=== PATIENT | female | born 1945 | race Caucasian/White ===

== ENCOUNTER 2020-12-28 15:37 | Inpatient (IN) | payer MEDICARE, OTHER ==
[2020-12-28] MEDS ORDERED: SODIUM CHLORIDE 0.9% 1,000 ML IV STA (16:08)
[2020-12-28] MEDS ORDERED: fentaNYL (PF) 50 MCG/ML 2 ML AMP IVP STA (16:09)
[2020-12-28 16:39] LABS: Anisocytosis Slight; Basophils # (A) 0.1 k/uL (0-0.2); Basophils % (A) 1 %; Eosinophils # (A) 0.1 k/uL (0-0.7); Eosinophils % (A) 1 %; HCT 48.4 % (34.0-46.0); HGB 16.1 gm/dL (11.4-16.0); Lymphocytes # (A) 1.4 k/uL (1.0-4.8); Lymphocytes % (A) 17 %; MCH 30.1 pg (25.0-35.0); MCHC 33.3 g/dL (31.0-37.0); MCV 90.3 fL (80.0-100.0); Mean Platelet Volume 10.2; Monocytes # (A) 0.4 k/uL (0-1.0); Monocytes % (A) 5 %; Neutrophils # (A) 6.1 k/uL (1.3-7.7); Neutrophils % (A) 74 %; Platelet Count 339 k/uL (150-450); RBC 5.36 m/uL (3.80-5.40); RDW 16.2 % (11.5-15.5); WBC 8.2 k/uL (3.8-10.6)
--- NOTE | 2020-12-28 16:42 | ED ---
General Adult HPI - General Chief complaint: Recheck/Abnormal Lab/Rx Stated complaint: Jaundice Time Seen by Provider: 12/28/20 15:47 Source: patient, family, RN notes reviewed, Caregiver Limitations: no limitations - History of Present Illness Initial comments: 75-year-old white female patient brought in by her caregiver states she has not seen patient in the past 2 weeks. Patient is alert and oriented 2 initially stating the year was 2000, severely jaundiced and weak but able to get on to cart with minimal assistance. Patient complaining of generalized weakness and pain. Patient unaware that she is jaundiced states the urine has been dark in color but cannot say how long its been happening. Son at bedside states he has not seen his mother in 1 month. States she was at [facility] in 2019 and diagnosed with gallstones but they did not remove her gallbladder at that time. Patient has history of CVA, denies drug or alcohol use. States he has a history of hepatitis but is unsure what she had passed. Patient complains of diffuse pain in abdomen and chest with palpation. Denies fever, shortness of breath, cough, nausea vomiting or diarrhea. Initial vital signs show a temperature of 96.9 heart rate of 95 blood pressure 93/70 with an oxygen saturation of 97% and a respiratory rate of 18. Due to the jaundice and the blood pressure, patient will be evaluated for sepsis, and biliary obstruction. - Related Data Allergies Allergy/AdvReac Type Severity Reaction Status Date / Time codeine Allergy Unknown Verified 12/28/20 15:47 Review of Systems ROS Statement: Those systems with pertinent positive or pertinent negative responses have been documented in the HPI. ROS Other: All systems not noted in ROS Statement are negative. Past Medical History Past Medical History: Unable to Obtain History of Any Multi-Drug Resistant Organisms: None Reported Past Surgical History: Unable to Obtain Past Psychological History: No Psychological Hx Reported Smoking Status: Current every day smoker Past Alcohol Use History: None Reported Past Drug Use History: None Reported General Exam Limitations: no limitations, altered mental status (patient initially states year is 2000) General appearance: alert Head exam: Present: atraumatic Eye exam: Present: PERRL, EOMI, scleral icterus ENT exam: Present: normal exam, normal oropharynx, mucous membranes dry Neck exam: Present: normal inspection, full ROM Respiratory exam: Present: normal lung sounds bilaterally Cardiovascular Exam: Present: regular rate GI/Abdominal exam: Present: soft, tenderness, normal bowel sounds Neurological exam: Present: alert Psychiatric exam: Present: normal affect, normal mood Skin exam: Present: warm, dry, other (full body jaundice) Course Vital Signs 12/28/20 12/28/20 12/28/20 15:42 16:36 17:00 Temperature 96.9 F L Pulse Rate 95 79 76 Respiratory 16 18 18 Rate Blood Pressure 93/70 103/63 O2 Sat by Pulse 97 97 Oximetry 12/28/20 12/28/20 12/28/20 17:30 18:00 18:30 Temperature Pulse Rate 77 74 70 Respiratory 18 16 18 Rate Blood Pressure 121/74 118/73 108/70 O2 Sat by Pulse 97 99 96 Oximetry - Reevaluation(s) Reevaluation #1: 12/28/20 16:43 Patient reassessment, patient states pain only with palpation and is refusing fentanyl at this time. Patient denies nausea. Son at bedside states that eliza mcfarland had seen a GI doctor in 2019 for gallstones in the chose at that time not to remove her gallbladder. Son is also unaware that patient had hepatitis in the past. 6-year-old seen patient in 2019 and records requested from that facility. Time: 17:18 (Blood pressure 121/74 heart rate 77 oxygen level 97% on room air patient comfortable on cart awaiting CAT scan) Time: 17:24 (Urine shows WBC count of 86, will treat with Rocephin after blood cultures drawn) EKG Findings - EKG Comments: EKG Findings:: ekg reviewed by Dr. Whitley and myself at 1620 shows sinus rhythm with ventricular rate of 84 [place] interval of 0.158 QRS of 0.84 QTc of 472 ms Medical Decision Making - Medical Decision Making Evaluation of labs shows, White blood count 8.2 hemoglobin 16.1. Lactic acid 2.33 treated with 2 L of normal saline suspected to be from dehydration rather than sepsis, total bili 26.7, AST 471, LT 585, alk phos 1860, labs are consist ent with cholecystitis with biliary obstruction. KUB negative, however CT shows 5 x 4 cm mass at the pancreatic body, renal cyst up to 4.5 cm, and 4.1 aortic aneurysm which. Records obtained from [facility], patient has history of of multiple gallstones 6 cm, with multiple bilateral renal cysts up to 5 cm, E aortic aneurysm at 3.5 cm on 10/15/2019. Urinalysis shows a WBC count of 86 with large leukocyte esterase and trace blood, treated with Rocephin 2 g IV piggyback for UTI. Case discussed with Dr. Whitley with agreement to admit patient to Dr. Sanots, with consult to oncology and GI. - Lab Data Result diagrams: 12/28/20 16:14 12/28/20 16:14 Lab Results 12/28/20 12/28/20 12/28/20 Range/Units 16:14 16:14 16:14 WBC 8.2 (3.8-10.6) k/uL RBC 5.36 (3.80-5.40) m/uL Hgb 16.1 H (11.4-16.0) gm/dL Hct 48.4 H (34.0-46.0) % MCV 90.3 (80.0-100.0) fL MCH 30.1 (25.0-35.0) pg MCHC 33.3 (31.0-37.0) g/dL RDW 16.2 H (11.5-15.5) % Plt Count 339 (150-450) k/uL MPV 10.2 Neutrophils % 74 % Lymphocytes % 17 % Monocytes % 5 % Eosinophils % 1 % Basophils % 1 % Neutrophils # 6.1 (1.3-7.7) k/uL Lymphocytes # 1.4 (1.0-4.8) k/uL Monocytes # 0.4 (0-1.0) k/uL Eosinophils # 0.1 (0-0.7) k/uL Basophils # 0.1 (0-0.2) k/uL Anisocytosis Slight PT 13.5 H (9.0-12.0) sec INR 1.3 H (<1.2) APTT 25.9 (22.0-30.0) sec Sodium 137 (137-145) mmol/L Potassium 4.0 (3.5-5.1) mmol/L Chloride 102 (98-107) mmol/L Carbon Dioxide 15 L (22-30) mmol/L Anion Gap 20 mmol/L BUN 22 H (7-17) mg/dL Creatinine 0.86 (0.52-1.04) mg/dL Est GFR (CKD-EPI)AfAm 76 (>60 ml/min/1.73 sqM) Est GFR (CKD-EPI)NonAf 66 (>60 ml/min/1.73 sqM) Glucose 157 H (74-99) mg/dL Lactic Ac Sepsis Rflx Plasma Lactic Acid Wolfgang (0.7-2.0) mmol/L Calcium 10.3 H (8.4-10.2) mg/dL Total Bilirubin 26.7 H* (0.2-1.3) mg/dL AST 471 H (14-36) U/L ALT 585 H (4-34) U/L Alkaline Phosphatase 1860 H (38-126) U/L Ammonia (<30) umol/L Creatine Kinase 29 L (30-135) U/L Troponin I (0.000-0.034) ng/mL Total Protein 7.5 (6.3-8.2) g/dL Albumin 3.8 (3.5-5.0) g/dL Amylase 34 (30-110) U/L Lipase 71 (23-300) U/L Urine Color Urine Appearance (Clear) Urine pH (5.0-8.0) Ur Specific Franklin (1.001-1.035) Urine Protein (Negative) Urine Glucose (UA) (Negative) Urine Ketones (Negative) Urine Blood (Negative) Urine Nitrite (Negative) Urine Bilirubin (Negative) Urine Urobilinogen (<2.0) mg/dL Ur Leukocyte Esterase (Negative) Urine RBC (0-5) /hpf Urine WBC (0-5) /hpf Ur Squamous Epith Cells (0-4) /hpf Triple Phos Crystals (None) /hpf Urine Bacteria (None) /hpf Urine Mucus (None) /hpf 12/28/20 12/28/20 12/28/20 Range/Units 16:14 16:14 16:59 WBC (3.8-10.6) k/uL RBC (3.80-5.40) m/uL Hgb (11.4-16.0) gm/dL Hct (34.0-46.0) % MCV (80.0-100.0) fL MCH (25.0-35.0) pg MCHC (31.0-37.0) g/dL RDW (11.5-15.5) % Plt Count (150-450) k/uL MPV Neutrophils % % Lymphocytes % % Monocytes % % Eosinophils % % Basophils % % Neutrophils # (1.3-7.7) k/uL Lymphocytes # (1.0-4.8) k/uL Monocytes # (0-1.0) k/uL Eosinophils # (0-0.7) k/uL Basophils # (0-0.2) k/uL Anisocytosis PT (9.0-12.0) sec INR (<1.2) APTT (22.0-30.0) sec Sodium (137-145) mmol/L Potassium (3.5-5.1) mmol/L Chloride (98-107) mmol/L Carbon Dioxide (22-30) mmol/L Anion Gap mmol/L BUN (7-17) mg/dL Creatinine (0.52-1.04) mg/dL Est GFR (CKD-EPI)AfAm (>60 ml/min/1.73 sqM) Est GFR (CKD-EPI)NonAf (>60 ml/min/1.73 sqM) Glucose (74-99) mg/dL Lactic Ac Sepsis Rflx Plasma Lactic Acid Wolfgang 2.3 H* (0.7-2.0) mmol/L Calcium (8.4-10.2) mg/dL Total Bilirubin (0.2-1.3) mg/dL AST (14-36) U/L ALT (4-34) U/L Alkaline Phosphatase (38-126) U/L Ammonia 16 (<30) umol/L Creatine Kinase (30-135) U/L Troponin I <0.012 (0.000-0.034) ng/mL Total Protein (6.3-8.2) g/dL Albumin (3.5-5.0) g/dL Amylase (30-110) U/L Lipase (23-300) U/L Urine Color Dark Brown Urine Appearance Turbid H (Clear) Urine pH 8.0 (5.0-8.0) Ur Specific Franklin 1.018 (1.001-1.035) Urine Protein 2+ H (Negative) Urine Glucose (UA) Negative (Negative) Urine Ketones 1+ H (Negative) Urine Blood Trace H (Negative) Urine Nitrite Positive H (Negative) Urine Bilirubin 4+ H (Negative) Urine Urobilinogen 2.0 (<2.0) mg/dL Ur Leukocyte Esterase Large H (Negative) Urine RBC 40 H (0-5) /hpf Urine WBC 86 H (0-5) /hpf Ur Squamous Epith Cells 3 (0-4) /hpf Triple Phos Crystals Few H (None) /hpf Urine Bacteria Many H (None) /hpf Urine Mucus Moderate H (None) /hpf 12/28/20 Range/Units 17:01 WBC (3.8-10.6) k/uL RBC (3.80-5.40) m/uL Hgb (11.4-16.0) gm/dL Hct (34.0-46.0) % MCV (80.0-100.0) fL MCH (25.0-35.0) pg MCHC (31.0-37.0) g/dL RDW (11.5-15.5) % Plt Count (150-450) k/uL MPV Neutrophils % % Lymphocytes % % Monocytes % % Eosinophils % % Basophils % % Neutrophils # (1.3-7.7) k/uL Lymphocytes # (1.0-4.8) k/uL Monocytes # (0-1.0) k/uL Eosinophils # (0-0.7) k/uL Basophils # (0-0.2) k/uL Anisocytosis PT (9.0-12.0) sec INR (<1.2) APTT (22.0-30.0) sec Sodium (137-145) mmol/L Potassium (3.5-5.1) mmol/L Chloride (98-107) mmol/L Carbon Dioxide (22-30) mmol/L Anion Gap mmol/L BUN (7-17) mg/dL Creatinine (0.52-1.04) mg/dL Est GFR (CKD-EPI)AfAm (>60 ml/min/1.73 sqM) Est GFR (CKD-EPI)NonAf (>60 ml/min/1.73 sqM) Glucose (74-99) mg/dL Lactic Ac Sepsis Rflx Y Plasma Lactic Acid Wolfgang (0.7-2.0) mmol/L Calcium (8.4-10.2) mg/dL Total Bilirubin (0.2-1.3) mg/dL AST (14-36) U/L ALT (4-34) U/L Alkaline Phosphatase (38-126) U/L Ammonia (<30) umol/L Creatine Kinase (30-135) U/L Troponin I (0.000-0.034) ng/mL Total Protein (6.3-8.2) g/dL Albumin (3.5-5.0) g/dL Amylase (30-110) U/L Lipase (23-300) U/L Urine Color Urine Appearance (Clear) Urine pH (5.0-8.0) Ur Specific Franklin (1.001-1.035) Urine Protein (Negative) Urine Glucose (UA) (Negative) Urine Ketones (Negative) Urine Blood (Negative) Urine Nitrite (Negative) Urine Bilirubin (Negative) Urine Urobilinogen (<2.0) mg/dL Ur Leukocyte Esterase (Negative) Urine RBC (0-5) /hpf Urine WBC (0-5) /hpf Ur Squamous Epith Cells (0-4) /hpf Triple Phos Crystals (None) /hpf Urine Bacteria (None) /hpf Urine Mucus (None) /hpf Disposition Clinical Impression: Jaundice, Pancreatic mass, Cholecystitis, UTI (urinary tract infection), Elevated bilirubin, Lactic acidosis Clinical Impression: (Ruled Out): Jaundice as manifestation of blood transfusion reaction Disposition: ADMITTED IP TO THIS [facility] Condition: Stable Referrals: Tyra Kramer DO [Primary Care Provider] - 1-2 days Time of Disposition: 18:52 Decision to Admit Reason: Admit from EC Decision Date: 12/28/20 Decision Time: 18:52
[2020-12-28 16:59] LABS: Albumin 3.8 g/dL (3.5-5.0); Calcium 10.3 mg/dL (8.4-10.2); Total Protein 7.5 g/dL (6.3-8.2)
[2020-12-28 17:00] LABS: Lactic Acid, Venous 2.3 mmol/L (0.7-2.0)
[2020-12-28] MEDS ORDERED: SODIUM CHLORIDE 0.9% 1,000 ML IV ONE (17:02)
[2020-12-28 17:12] LABS: INR 1.3 (<1.2); Partial Thromboplastin Time 25.9 sec (22.0-30.0); Prothrombin Time 13.5 sec (9.0-12.0); Total Bilirubin 26.7 mg/dL (0.2-1.3)
[2020-12-28 17:13] LABS: Appearance,Urine Turbid (Clear); Bacteria,Urine Many /hpf; Bilirubin,Urine 4+ (Negative); Blood,Urine Trace (Negative); Color,Urine Dark Brown; Glucose,Urine (UA) Negative (Negative); Ketones,Urine 1+ (Negative); Leukocyte Esterase,Urine Large (Negative); Mucus,Urine Moderate /hpf; Nitrite,Urine Positive (Negative); Protein,Urine 2+ (Negative); RBC,Urine 40 /hpf (0-5); Specific Gravity,Urine 1.018 (1.001-1.035); Squamous Epithelial Cell,Urine 3 /hpf (0-4); Triple Phosphate Crystal,Urine Few /hpf; WBC,Urine 86 /hpf (0-5)
--- NOTE | 2020-12-28 18:17 | XR ---
EXAM: Abdomen radiograph. HISTORY: Pain. TECHNIQUE: Upright AP view. COMPARISON: Same-day CT. FINDINGS: There are nondilated bowel loops with a nonobstructive pattern. No free air. There are no pathologic calcifications. No acute osseous abnormality seen. IMPRESSION: No radiographic evidence for acute process.
--- NOTE | 2020-12-28 18:32 | CT ---
EXAMINATION TYPE: CT abdomen pelvis w con DATE OF EXAM: 12/28/2020 COMPARISON: Same-day radiograph. HISTORY: Abdominal pain and jaundice. CT DLP: 797 mGycm Automated exposure control for dose reduction was used. TECHNIQUE: Helical acquisition of images was performed from the lung bases through the pelvis. CONTRAST: Performed without Oral Contrast and with IV Contrast, patient injected with 100 mL of Isovue 300. FINDINGS: LUNG BASES: Mild bibasilar atelectasis. LIVER/GB: Distended gallbladder with impacted stones. No significant wall thickening or pericholecyst ic fluid. Marked intrahepatic biliary ductal dilatation., Common bile duct diameter is approximately 0.5 cm PANCREAS: Approximately 5 x 4 cm hypoattenuating mass within the pancreatic body with moderate pancre atic ductal dilatation. SPLEEN: No significant abnormality is seen. ADRENALS: No significant abnormality is seen. KIDNEYS: No significant abnormality is seen. Multiple bilateral simple appearing renal cysts, measuri ng up to 4.5 cm. FREE AIR: No free air is visualized. RETROPERITONEAL ADENOPATHY: None visualized REPRODUCTIVE ORGANS: No significant abnormality is seen URINARY BLADDER: Moderate urinary bladder wall thickening. ADENOPATHY: Multiple upper periaortic enlarged lymph nodes, with index lesion measuring approximate ly 15 mm in short axis. OSSEOUS STRUCTURES: No significant abnormality is seen. BOWEL: No significant abnormality is seen. OTHER: 3 nodular lesions in the right lower quadrant anterior peritoneal with the largest measuring 1 .8 x 1.3 cm. A 4.1 cm suprarenal abdominal aortic aneurysm with intramural thrombus seen. IMPRESSION: 5 CM PANCREATIC BODY MASS WITH PANCREATIC DUCTAL DILATATION, HIGHLY SUGGESTIVE OF MALIGNANCY. ASSOCIATED MULTIPLE RIGHT PERITONEAL NODULAR LESIONS AND PERIAORTIC LYMPHADENOPATHY, CONCERNING FOR M ETASTATIC DISEASE. MARKED INTRAHEPATIC BILIARY DUCTAL DILATATION AND DISTENDED GALLBLADDER WITH STONES. URINARY BLADDER WALL THICKENING, CORRELATE FOR CYSTITIS. 4.1 CM ABDOMINAL AORTIC ANEURYSM. OTHER CHRONIC FINDINGS ABOVE.
[2020-12-28] MEDS ORDERED: ONDANSETRON 4 MG/2 ML VIAL IVP PRN (18:42)
[2020-12-28] MEDS ORDERED: NALOXONE 0.4 MG/ML 1 ML VIAL IV PRN (18:42)
[2020-12-28] MEDS ORDERED: HYDROmorphone 0.5 MG/0.5 ML SYRINGE IVP PRN (18:42)
[2020-12-28] MEDS: SODIUM CHLORIDE 0.9% 1,000 ML IV SCH (19:16)
[2020-12-29 00:52] LABS: Hepatitis B Core IgM Non-Reactive (Non-Reactive); Hepatitis B Surface Antigen Non-Reactive (Non-Reactive); Hepatitis C IgG Antibody Non-Reactive (Non-Reactive)
[2020-12-29 01:40] LABS: Hepatitis A Antibody IgM Non-Reactive (Non-Reactive)
[2020-12-29] MEDS: SODIUM CHLORIDE 0.9% 1,000 ML IV SCH ×2 (03:08→11:02)
[2020-12-29 04:19] VITALS: BP 118/77; PULSE 70; RESP 18; TEMP 97.4
[2020-12-29] MEDS ORDERED: CLOPIDOGREL 75 MG TAB PO SCH (09:00)
[2020-12-29] MEDS ORDERED: METOPROLOL SUCCINATE (ER) 50 MG TAB.ER.24H PO SCH (09:00)
[2020-12-29 09:33] LABS: ALT 449 U/L (4-34); AST 358 U/L (14-36); African American GFR (CKD) >90 (>60 ml/min/1.73 sqM); Albumin 2.9 g/dL (3.5-5.0); Alkaline Phosphatase 1387 U/L (38-126); Anion Gap 13 mmol/L; Blood Urea Nitrogen 12 mg/dL (7-17); Calcium 8.7 mg/dL (8.4-10.2); Carbon Dioxide 16 mmol/L (22-30); Chloride 112 mmol/L (98-107); Glucose 101 mg/dL (74-99); Non-African American GFR(CKD) 89 (>60 ml/min/1.73 sqM); Potassium 3.3 mmol/L (3.5-5.1); Sodium 141 mmol/L (137-145); Total Protein 5.9 g/dL (6.3-8.2)
[2020-12-29 09:49] LABS: Total Bilirubin 21.7 mg/dL (0.2-1.3)
--- NOTE | 2020-12-29 14:56 | P.CONS ---
History of Present Illness - Reason for Consult Consult date: 12/29/20 Obstructive Jaundice Requesting physician: Aayush Carrington - Chief Complaint Yellow - History of Present Illness Mrs. Domínguez is a 75-year-old white female who at baseline is alert and oriented x1-2. Apparently over the past week her caregiver noted she was becoming increasingly jaundiced and brought her to emergency for further evaluation. A CT of abdomen revealed a 5cm pancreatic head mass concerning for underlying malignancy. She has history of CVA and hepatitis (denies IVDA in life). Hypotensive and biliary obstruction secondary to pathology of mass GI has been consulted and we were also asked to further evaluate. Patient will be transferred to [facility] for further diagnostic work-up with ERCP and EUS she can follow-up with Dr. Bland on her return. She will also need PET scan as initial CT imaging is concerning for potential metastatic process Review of Systems ROS unobtainable: due to mental status Past Medical History Past Medical History: No Reported History Additional Past Medical History / Comment(s): gallstones History of Any Multi-Drug Resistant Organisms: None Reported Past Surgical History: No Surgical Hx Reported Past Psychological History: No Psychological Hx Reported Smoking Status: Current every day smoker Past Alcohol Use History: None Reported Past Drug Use History: None Reported - Past Family History Son(s) Family Medical History: No Reported History Medications and Allergies Home Medications Medication Instructions Recorded Confirmed Type Clopidogrel Bisulfate [Plavix] 75 mg PO DAILY 12/28/20 12/28/20 History Meclizine HCl 12.5 mg PO DAILY 12/28/20 12/28/20 History Metoprolol Succinate (ER) [Toprol 50 mg PO DAILY 12/28/20 12/28/20 History Xl] Allergies Allergy/AdvReac Type Severity Reaction Status Date / Time codeine Allergy Unknown Verified 12/28/20 19:58 Physical Exam Vitals: Vital Signs Temp Pulse Pulse Resp BP BP Pulse Ox 12/29/20 04:18 97.4 F L 70 18 118/77 97 12/28/20 22:53 97.7 F 71 16 125/79 98 12/28/20 22:00 74 15 120/73 97 12/28/20 20:00 82 18 106/76 12/28/20 19:30 73 17 12/28/20 19:00 72 18 106/60 02/25/21 18:30 70 18 108/70 96 12/28/20 18:00 74 16 118/73 99 12/28/20 17:30 77 18 121/74 97 12/28/20 17:00 76 18 103/63 97 12/28/20 16:36 79 18 12/28/20 15:42 96.9 F L 95 16 93/70 97 Intake and Output 12/28/20 12/29/20 12/29/20 22:59 06:59 14:59 Intake Total 1600 Balance 1600 Intake: Intake, IV Titration 1600 Amount Sodium Chloride 0.9% 1, 1600 000 ml @ 130 mls/hr IV . [id number] [facility] Rx#:[id number] Oral 0 Other: # Voids 3 Weight 63.503 kg - Constitutional General appearance: no acute distress - EENT Eyes: scleral icterus ENT: hard of hearing - Neck Neck: normal ROM - Respiratory Respiratory: bilateral: diminished - Cardiovascular Rhythm: regular - Gastrointestinal General gastrointestinal: distended, soft - Integumentary Integumentary: jaundiced - Musculoskeletal Musculoskeletal: generalized weakness - Psychiatric baseline alert x1-2 Results CBC & Chem 7: 12/28/20 16:14 12/29/20 08:59 Labs: Abnormal Lab Results - Last 24 Hours (Table) 12/28/20 12/28/20 12/28/20 Range/Units 16:14 16:14 16:14 Hgb 16.1 H (11.4-16.0) gm/dL Hct 48.4 H (34.0-46.0) % RDW 16.2 H (11.5-15.5) % PT 13.5 H (9.0-12.0) sec INR 1.3 H (<1.2) Potassium (3.5-5.1) mmol/L Chloride (98-107) mmol/L Carbon Dioxide 15 L (22-30) mmol/L BUN 22 H (7-17) mg/dL Glucose 157 H (74-99) mg/dL Plasma Lactic Acid Wolfgang (0.7-2.0) mmol/L Calcium 10.3 H (8.4-10.2) mg/dL Total Bilirubin 26.7 H* (0.2-1.3) mg/dL AST 471 H (14-36) U/L ALT 585 H (4-34) U/L Alkaline Phosphatase 1860 H (38-126) U/L Creatine Kinase 29 L (30-135) U/L Total Protein (6.3-8.2) g/dL Albumin (3.5-5.0) g/dL Urine Appearance (Clear) Urine Protein (Negative) Urine Ketones (Negative) Urine Blood (Negative) Urine Nitrite (Negative) Urine Bilirubin (Negative) Ur Leukocyte Esterase (Negative) Urine RBC (0-5) /hpf Urine WBC (0-5) /hpf Triple Phos Crystals (None) /hpf Urine Bacteria (None) /hpf Urine Mucus (None) /hpf 12/28/20 12/28/20 12/29/20 Range/Units 16:14 16:59 08:59 Hgb (11.4-16.0) gm/dL Hct (34.0-46.0) % RDW (11.5-15.5) % PT (9.0-12.0) sec INR (<1.2) Potassium 3.3 L (3.5-5.1) mmol/L Chloride 112 H (98-107) mmol/L Carbon Dioxide 16 L (22-30) mmol/L BUN (7-17) mg/dL Glucose 101 H (74-99) mg/dL Plasma Lactic Acid Wolfgang 2.3 H* (0.7-2.0) mmol/L Calcium (8.4-10.2) mg/dL Total Bilirubin 21.7 H* (0.2-1.3) mg/dL AST 358 H (14-36) U/L ALT 449 H (4-34) U/L Alkaline Phosphatase 1387 H (38-126) U/L Creatine Kinase (30-135) U/L Total Protein 5.9 L (6.3-8.2) g/dL Albumin 2.9 L (3.5-5.0) g/dL Urine Appearance Turbid H (Clear) Urine Protein 2+ H (Negative) Urine Ketones 1+ H (Negative) Urine Blood Trace H (Negative) Urine Nitrite Positive H (Negative) Urine Bilirubin 4+ H (Negative) Ur Leukocyte Esterase Large H (Negative) Urine RBC 40 H (0-5) /hpf Urine WBC 86 H (0-5) /hpf Triple Phos Crystals Few H (None) /hpf Urine Bacteria Many H (None) /hpf Urine Mucus Moderate H (None) /hpf Microbiology - Last 24 Hours (Table) 12/28/20 16:59 Urine Culture - Preliminary Urine,Voided CT scan - abdomen: report reviewed Assessment and Plan Plan: Assessment and recommendations: Obstructive Jaundice: - GI following await recs Pancreatic Head Mass: - 5cm on imaging concerning for underlying malignancy - Full body staging will eventually be needed - Biopsy will be needed for confirmation, await Ca19-9 and GI input for best approach from MRCP versus EUS - MRI Pancreas defer to GI Await above and then will provide further recs Thank you for allowing our care in this patient UPDATE: Patient will be transferred to [facility] for further diagnostic work-up with ERCP and EUS she can follow-up with Dr. Bland on her return. She will also need PET scan as initial CT imaging is concerning for potential metastatic process Physician attest: I have completed the full history and physical and agree with above dictation, dictated as a scribe
--- NOTE | 2020-12-29 17:24 | P.DS ---
<TulareNan - Last Filed: 12/29/20 17:03> Providers Expected date of discharge: 12/29/20 Hospital Course: This is a 75-year-old female admitted with new onset jaundice in a patient with history of gallstones, ongoing nicotine dependence and multiple other medical issues. Abdomen/pelvic CT reported 5 cm pancreatic body mass with pancreatic ductal dilation, highly suggestive of malignancy, associated multiple right peritoneal nodular lesions, periaortic lymphadenopathy, concerning for me tastatic disease, marked intrahepatic biliary ductal dilation and distended gallbladder with stones, urinary bladder wall thickening, correlate for cystitis, 4.1 cm abdominal aortic aneurysm. Hemoglobin 16.1, MCV 90.3, platelets 339, INR 1.3, lactic acid 2.3 on admission down to 1.2. T bili 26.7, AST 471, ALT 585, alk phos 1860, ammonia 16, creatinine kinase 29. Questionable history of hepatitis, denies IV drug abuse- Serology reported nonreactive for hepatitis A, B, and C. UA reporting moderate mucus, many bacteria, 86 WBCs, 40 RBCs, large leukocytes,+ bili and positive nitrate, 1+ ketones. Coronavirus not detected. Afebrile, normal WBC. vital signs stable, maintaining O2 sats in the high 90s on room air. Evaluated by both GI and oncology. GI recommending patient be transferred to a tertiary center as patient will require an EUS/ERCP for pancreatic/biliary obstruction, possible mass, suspicious for malignancy, which is unable to be performed here. In addition, there is no GI services available for the weekend. Patient will be transferred in a stable condition with guarded prognosis to [facility], accepting physician,Lupillo Kumar. Please refer to H&P for full details. -Obstructive jaundice, new onset -5 cm pancreatic body mass with pancreatic ductal dilation, highly suggestive of malignancy, associated multiple right peritoneal nodular lesions, periaortic lym phadenopathy, concerning for metastatic disease, marked intrahepatic biliary ductal dilation and distended gallbladder with stones, urinary bladder wall thickening, correlate for cystitis, 4.1 cm abdominal aortic aneurysm. -Reports history of hepatitis,Serology reported nonreactive for hepatitis A, B, and C. -Elevated INR, T bili, LFTs -History of gallstones -Ongoing nicotine dependence The impression and plan of care has been dictated as directed. : I performed a history and examination of this patient, discussed the same with the dictator. I agree with the dictator's note ,documented as a scribe. Any additional findings or plans will be noted. Patient Condition at Discharge: Stable Plan - Discharge Summary New Discharge Prescriptions: No Action Metoprolol Succinate (ER) [Toprol Xl] 50 mg PO DAILY Meclizine HCl 12.5 mg PO DAILY Clopidogrel Bisulfate [Plavix] 75 mg PO DAILY Discharge Medication List Clopidogrel Bisulfate [Plavix] 75 mg PO DAILY 12/28/20 [History] Meclizine HCl 12.5 mg PO DAILY 12/28/20 [History] Metoprolol Succinate (ER) [Toprol Xl] 50 mg PO DAILY 12/28/20 [History] Follow up Appointment(s)/Referral(s): Nando Bland MD [STAFF PHYSICIAN] - 1 Week (call office after discharge from [facility]) Tyra Kramer DO [Primary Care Provider] - 1-2 days Activity/Diet/Wound Care/Special Instructions: Transfer to [facility] , Lupillo Kumar. <Reza Kramer - Last Filed: 12/29/20 19:12> Providers Date of admission: 12/28/20 20:51 Attending physician: Reza Kramer MD Consults: 12/28/20 18:44 Consult Physician Routine Consulting Provider: Nando Bland Consult Reason/Comments: Obstructive jaundice secondary to pancreatic cancer, gallstones Do you want consulting provider notified?: Yes Consult Physician Routine Consulting Provider: Guevara Allen Consult Reason/Comments: Obstructive jaundice secondary to new-onset pancreatic cancer/gallstones Do you want consulting provider notified?: Yes Primary care physician: Tyra Kramer - Discharge Diagnosis(es) (1) Elevated bilirubin Current Visit: Yes Status: Acute (2) Pancreatic mass Current Visit: Yes Status: Acute (3) UTI (urinary tract infection) Current Visit: Yes Status: Acute
--- NOTE | 2020-12-29 19:12 | P.HPIM ---
History of Present Illness H&P Date: 12/29/20 Chief Complaint: jaundice, weakness Yumiko Domínguez is a 75 yo F with no significant PMH who presented to the ED with weakness, malaise and confusion. Her caregiver had checked on the pt for the first time in a few weeks and noticed her to be confused and yellow in appearance. Pt was confused and thought it was 2000. On presentation BP 83/70, labs with WBC 8.2, bilirubin 26.7, INR 1.3, AST/ALT 500s, Cr 0.86. CT abd/pelvis with 5 cm pancreatic mass and ductal dilation suggestive of malignancy. UA positive for bacteria. Review of Systems All systems: negative Constitutional: Reports fatigue, Reports malaise, Reports weakness, Reports weight loss, Denies chills, Denies fever Eyes: denies blurred vision, denies pain Ears, nose, mouth and throat: Denies headache, Denies sore throat Cardiovascular: Denies chest pain, Denies shortness of breath Respiratory: Denies cough Gastrointestinal: Reports abdominal pain, Reports early satiety, Reports jaundice, Reports loss of appetite, Reports nausea, Denies diarrhea, Denies vomiting Genitourinary: Denies dysuria, Denies hematuria Musculoskeletal: Denies myalgias Integumentary: Denies pruritus, Denies rash Neurological: Denies numbness, Denies weakness Psychiatric: Denies anxiety, Denies depression Endocrine: Denies fatigue, Denies weight change Past Medical History Past Medical History: No Reported History Additional Past Medical History / Comment(s): gallstones History of Any Multi-Drug Resistant Organisms: None Reported Past Surgical History: No Surgical Hx Reported Past Psychological History: No Psychological Hx Reported Smoking Status: Current every day smoker Past Alcohol Use History: None Reported Past Drug Use History: None Reported - Past Family History Son(s) Family Medical History: No Reported History Medications and Allergies Home Medications Medication Instructions Recorded Confirmed Type Clopidogrel Bisulfate [Plavix] 75 mg PO DAILY 12/28/20 12/28/20 History Meclizine HCl 12.5 mg PO DAILY 12/28/20 12/28/20 History Metoprolol Succinate (ER) [Toprol 50 mg PO DAILY 12/28/20 12/28/20 History Xl] Allergies Allergy/AdvReac Type Severity Reaction Status Date / Time codeine Allergy Unknown Verified 12/28/20 19:58 Physical Exam Vitals: Vital Signs Temp Pulse Pulse Resp BP BP Pulse Ox 12/29/20 04:18 97.4 F L 70 18 118/77 97 12/28/20 22:53 97.7 F 71 16 125/79 98 12/28/20 22:00 74 15 120/73 97 12/28/20 20:00 82 18 106/76 12/28/20 19:30 73 17 12/28/20 19:00 72 18 106/60 12/28/20 18:30 70 18 108/70 96 12/28/20 18:00 74 16 118/73 99 12/28/20 17:30 77 18 121/74 97 12/28/20 17:00 76 18 103/63 97 12/28/20 16:36 79 18 12/28/20 15:42 96.9 F L 95 16 93/70 97 Intake and Output 12/28/20 12/29/20 12/29/20 22:59 06:59 14:59 Intake Total 1600 Balance 1600 Intake: Intake, IV Titration 1600 Amount Sodium Chloride 0.9% 1, 1600 000 ml @ 130 mls/hr IV . Q7H42M [facility] Rx#:[id number] Oral 0 Other: # Voids 3 Weight 63.503 kg General: Jaundiced, thin. Vitals reviewed Eyes: PERRL, EOMI, conjunctiva normal HENT: normocephalic, mucus membranes moist Neck: supple, no JVD Lungs: normal respiratory effort, no wheezes or rales CV: Regular rate and rhythm, no murmur. Peripheral pulses 2+ Abdomen: soft, nondistended, no organomegaly. Generalized tenderness to palpation Lymph: no cervical or axillary LAD Skin: warm and dry. Jaundiced Neuro: A&Ox3, normal mood and affect Results CBC & Chem 7: 12/28/20 16:14 12/29/20 08:59 Labs: Abnormal Lab Results - Last 24 Hours (Table) 12/28/20 12/28/20 12/28/20 Range/Units 16:14 16:14 16:14 Hgb 16.1 H (11.4-16.0) gm/dL Hct 48.4 H (34.0-46.0) % RDW 16.2 H (11.5-15.5) % PT 13.5 H (9.0-12.0) sec INR 1.3 H (<1.2) Potassium (3.5-5.1) mmol/L Chloride (98-107) mmol/L Carbon Dioxide 15 L (22-30) mmol/L BUN 22 H (7-17) mg/dL Glucose 157 H (74-99) mg/dL Plasma Lactic Acid Wolfgang (0.7-2.0) mmol/L Calcium 10.3 H (8.4-10.2) mg/dL Total Bilirubin 26.7 H* (0.2-1.3) mg/dL AST 471 H (14-36) U/L ALT 585 H (4-34) U/L Alkaline Phosphatase 1860 H (38-126) U/L Creatine Kinase 29 L (30-135) U/L Total Protein (6.3-8.2) g/dL Albumin (3.5-5.0) g/dL Urine Appearance (Clear) Urine Protein (Negative) Urine Ketones (Negative) Urine Blood (Negative) Urine Nitrite (Negative) Urine Bilirubin (Negative) Ur Leukocyte Esterase (Negative) Urine RBC (0-5) /hpf Urine WBC (0-5) /hpf Triple Phos Crystals (None) /hpf Urine Bacteria (None) /hpf Urine Mucus (None) /hpf 12/28/20 12/28/20 12/29/20 Range/Units 16:14 16:59 08:59 Hgb (11.4-16.0) gm/dL Hct (34.0-46.0) % RDW (11.5-15.5) % PT (9.0-12.0) sec INR (<1.2) Potassium 3.3 L (3.5-5.1) mmol/L Chloride 112 H (98-107) mmol/L Carbon Dioxide 16 L (22-30) mmol/L BUN (7-17) mg/dL Glucose 101 H (74-99) mg/dL Plasma Lactic Acid Wolfgang 2.3 H* (0.7-2.0) mmol/L Calcium (8.4-10.2) mg/dL Total Bilirubin 21.7 H* (0.2-1.3) mg/dL AST 358 H (14-36) U/L ALT 449 H (4-34) U/L Alkaline Phosphatase 1387 H (38-126) U/L Creatine Kinase (30-135) U/L Total Protein 5.9 L (6.3-8.2) g/dL Albumin 2.9 L (3.5-5.0) g/dL Urine Appearance Turbid H (Clear) Urine Protein 2+ H (Negative) Urine Ketones 1+ H (Negative) Urine Blood Trace H (Negative) Urine Nitrite Positive H (Negative) Urine Bilirubin 4+ H (Negative) Ur Leukocyte Esterase Large H (Negative) Urine RBC 40 H (0-5) /hpf Urine WBC 86 H (0-5) /hpf Triple Phos Crystals Few H (None) /hpf Urine Bacteria Many H (None) /hpf Urine Mucus Moderate H (None) /hpf Microbiology - Last 24 Hours (Table) 12/28/20 16:59 Urine Culture - Preliminary Urine,Voided Thrombosis Risk Factor Assmnt - Choose All That Apply Any of the Below Risk Factors Present?: No Other Risk Factors: Yes Each Risk Factor Represents 3 Points: Age 75 years or older Other congenital or acquired thrombophilia - If yes, enter type in comment: No Thrombosis Risk Factor Assessment Total Risk Factor Score: 3 Thrombosis Risk Factor Assessment Level: Moderate Risk Assessment and Plan (1) Elevated bilirubin Current Visit: Yes Status: Acute Code(s): R17 - UNSPECIFIED JAUNDICE SNOMED Code(s): 65178992 (2) Pancreatic mass Current Visit: Yes Status: Acute Code(s): K86.89 - OTHER SPECIFIED DISEASES OF PANCREAS SNOMED Code(s): 426318185 (3) UTI (urinary tract infection) Current Visit: Yes Status: Acute Code(s): N39.0 - URINARY TRACT INFECTION, SITE NOT SPECIFIED SNOMED Code(s): 41912461 Plan: 1. Elevated bilirubin and jaundice, secondary to pancreatic mass. Admit and consult GI for further evaluation, pain control, IV fluids. continue to monitor labs closely 2. Acute cystitis. Treat with IV rocephin
--- NOTE | 2020-12-29 21:52 | CONS ---
CONSULTATION DATE OF DICTATION: 12/29/2020 REASON FOR CONSULTATION: Obstructive jaundice. HISTORY OF PRESENT ILLNESS: The patient is a 75-year-old pleasant white female who came to the emergency room complaining of yellowish discoloration of skin and mild epigastric discomfort for the last 2 weeks' duration. She had weight loss of about 10 pounds. She denies any nausea, vomiting. She also noted some dark-colored urine for the last few days. She came to the emergency room and was noted to have elevated LFTs as well as jaundice, with a bilirubin at 21.7. AST and ALT are 358 and 449, respectively, and alkaline phosphatase is 1387. She did have a CT of the abdomen and pelvis done that showed a 5 x 4 cm hypoattenuating mass within the pancreatic body with moderate pancreatic ductal dilation. Also there was marked intra- and extrahepatic biliary ductal dilation noted, all suggestive of malignancy. Also there are multiple right peritoneal nodular lesions with para-aortic lymphadenopathy noted. PAST MEDICAL HISTORY: Significant for hypertension. PAST SURGICAL HISTORY: Unremarkable. MEDICATIONS AT HOME: Toprol, meclizine and Plavix. ALLERGIES: CODEINE. SOCIAL HISTORY: No smoking. No alcohol use. FAMILY HISTORY: Unremarkable. REVIEW OF SYSTEMS: CARDIOPULMONARY: No chest pain or shortness of breath. GENITOURINARY: No dysuria or hematuria other than darkish urine. NEUROLOGY: Unremarkable. PSYCHIATRY: Unremarkable. ENT/VISION: Unremarkable. CONSTITUTIONAL: Weight loss of about 10 pounds. No fever, chills, night sweats. PHYSICAL EXAMINATION: She appears comfortable. VITAL SIGNS: Stable. Blood pressure 133/86, pulse rate 82 and afebrile. HEENT examination unremarkable. Conjunctivae pink. Sclerae deeply icteric. Oral cavity no lesions. NECK: No JVD or lymph node enlargement. CHEST: Clear to auscultation. HEART: Regular rate and rhythm. ABDOMEN: Soft. Tenderness in the epigastric and right upper quadrant areas. No rebound or rigidity. Bowel sounds are positive. No organomegaly. EXTREMITIES: No pedal edema. NEUROLOGIC: Alert and oriented x3. No focal deficits. LABS: WBC 8.2, hemoglobin 16.1, platelets 339. T-bilirubin 26.7, alkaline phosphatase 1860, AST 471, ALT 585. INR 1.3. IMPRESSION: This is a lady who presented to the hospital with painless jaundice for the last [address] scan showed marked intrahepatic biliary ductal dilation with normal CBD and there was a 5 x 4 cm hypoattenuating mass in the head of the pancreas with pancreatic ductal dilation, all suggestive of pancreatic malignancy. RECOMMENDATIONS: I had a lengthy discussion with the patient regarding further workup. She will need an ERCP as well as EUS of the pancreas with biopsy for a definitive diagnosis, and hence we recommend her to be transferred to [facility] for further management. The patient is agreeable to it. Thank you for this consultation. MMODL / IJN: [id number] /
== END 2020-12-29 20:00 | disposition short-term general hospital (02) | DRG 436 ==
LOC: EC 15:37 → 5NMEDONC 20:51
PROVIDERS: ADMIT Family Medicine; ATTEND Family Medicine
DX: C25.9 Malignant neoplasm of pancreas, unspecified (principal); E87.2 Acidosis; N30.00 Acute cystitis without hematuria; K86.89 Other specified diseases of pancreas; F17.210 Nicotine dependence, cigarettes, uncomplicated; I10 Essential (primary) hypertension; I71.9 Aortic aneurysm of unspecified site, without rupture; K80.20 Calculus of gallbladder without cholecystitis without obstruction; N28.1 Cyst of kidney, acquired; Z20.822 Contact with and (suspected) exposure to COVID-19; R79.1 Abnormal coagulation profile; Z79.02 Long term (current) use of antithrombotics/antiplatelets; Z86.73 Personal history of transient ischemic attack (TIA), and cerebral infarction without residual deficits; R59.0 Localized enlarged lymph nodes; Z86.19 Personal history of other infectious and parasitic diseases; Z88.5 Allergy status to narcotic agent
CPT/HCPCS: 36415; 74018; 74177; 80053; 80074; 81001; 82140; 82150; 82550; 83605; 83690; 84484; 85025; 85610; 85730; 86301; 87040; 87077; 87086; 87186; 87635; 93005; 96361; 96365; 99285